=== PATIENT | male | born 1995 | race Caucasian/White ===

== ENCOUNTER 2018-08-03 10:44 | Emergency (ER) | payer OTHER ==
[~2018-08-03] VITALS: Ht 167.6 cm; Wt 60.2 kg
[~2018-08-03 10:44] MED LIST: ABILIFY10 MG PO; CLONIDINE HCL0.1 MG PO; DEXTROAMP-AMPHE10 MG PO; INTUNIV1 MG PO
--- OUTSIDE RECORDS SUMMARY | 2018-08-03 10:48 | XMS ---
PreManage Notification: GENEVA ENAMORADO Security Library Serials Assistant Events No recent Security Events currently on file CRITERIA MET - [facility] CARE PROVIDERS There are no care providers on record at this time. Juve has no Care Guidelines for this patient. Taj VISIT COUNT (12 MO.) 1 NIGEL Thornton TOTAL 1 NOTE: Visits indicate total known visits. ED/UCC VISIT TRACKING (12 MO.) 08/03/2018 10:45 NIGEL Art OR TYPE: Emergency COMPLAINT: - SOB INPATIENT VISIT TRACKING (12 MO.) No inpatient visits to display in this time frame [id number]
[2018-08-03] MEDS ORDERED: VYVANSE60 MG PO (10:53)
[2018-08-03] MEDS ORDERED: LATUDA60 MG PO (10:53)
== END 2018-08-03 10:56 | disposition home or self-care (01) ==
LOC: ED 10:44
DX: R06.02 Shortness of breath (principal); R05 Cough

== ENCOUNTER 2019-05-21 02:11 | Emergency (ER) | payer OTHER ==
[~2019-05-21] VITALS: Ht 170.2 cm; Wt 56.2 kg
[~2019-05-21 02:11] MED LIST changes: +LATUDA60 MG PO; +VYVANSE60 MG PO
--- OUTSIDE RECORDS SUMMARY | 2019-05-21 02:14 | XMS ---
PreManage Notification: GENEVA ENAMORADO Security Vp Software Support Events No recent Security Events currently on file CRITERIA MET - Group Notification - [facility] - Has Care Guidelines - PDMP CARE PROVIDERS There are no care providers on record at this time. Juve has no Care Guidelines for this patient. Care History Medical/Surgical 08/06/2018 [facility] CASE MANAGEMENT REFERRAL MADE- PATIENT HAS [facility] AND NO PCP. E.D. VISIT COUNT (12 MO.) [facility] 2 NOTE: Visits indicate total known visits. ED/UCC VISIT TRACKING (12 MO.) 05/21/2019 02:11 NIGEL Art OR TYPE: Emergency COMPLAINT: - MEDICAL CLEARANCE 08/03/2018 10:45 NIGEL Art OR TYPE: Emergency COMPLAINT: - SOB DIAGNOSES: - Shortness of breath - Cough INPATIENT VISIT TRACKING (12 MO.) No inpatient visits to display in this time frame [id number]
[2019-05-21] MEDS ORDERED: VITAMIN D50000 UNI1 PO (02:45)
[2019-05-21] MEDS ORDERED: VRAYLAR3 MG PO (02:45)
[2019-05-21] MEDS ORDERED: CHLORPROMAZINE100 MG PO (02:47)
[2019-05-21] MEDS ORDERED: TRAZODONE HCL50 MG PO (02:48)
[2019-05-21] MEDS ORDERED: VYVANSE50 M1 PO (02:48)
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
--- NOTE | 2019-05-21 08:10 | NUR ---
CHW CALLED [facility] 3 X VOICEMAIL IS NOT SET UP TO LEAVE A MESSAGE.
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
--- NOTE | 2019-05-21 08:18 | NUR ---
CHW CONTACTED FAUSTO BRAVO INTERNATIONAL MANAGER- STATED PHONE CONVERSATIONS WITH [facility] AND [facility]. FAUSTO WANTS THEM TO KNOW THAT THEY WILL DISCHARGE PATIENT WITHIN THE NEXT 2 HOURS AND TO BE CONSISTENT WE ARE NOT GOING TO KEEP HIM IN THE ED. PATIENT HAS BEEN MEDICALLY CLEARED AND MENTAL HEALTH HAS CLEARED PATIENT.
--- NOTE | 2019-05-21 08:31 | NUR ---
CHW SPOKE WITH MUNA REYES AT [facility]- SHE WILL HAVE SOMEONE UP AT THE HOSPITAL TO VISIT WITH THE PATIENT WITHIN AN HOUR TO HELP PATIENT WITH PLACEMENT OPTIONS. SHE REITERATED THIS IS A ONE TIME CIRCUMSTANCE AND THAT THEY GENERALLY DO NOT DO THIS. BUT DUE TO CURRENT SITUATION THEY WILL HELP. CHW CONTACTED FAUSTO BRAVO TRADE SALES ASSISTANT- STATED [facility] WILL BE COMING TO VISIT THE PATIENT WITHIN THE HOUR. REITERATED WHAT MUNA STATED THIS IS A ONE TIME DEAL DUE TO CURRENT CIRCUMSTANCE BUT THEY DO NOT GENERALLY DO THIS.
== END 2019-05-21 09:14 | disposition home or self-care (01) ==
LOC: ED 02:11
DX: R45.4 Irritability and anger (principal); Z79.899 Other long term (current) drug therapy
CPT/HCPCS: 36415; 80053; 80176; 81001; 84443; 85025; 99284; G0480

== ENCOUNTER 2019-11-26 16:37 | Emergency (ER) | payer OTHER ==
[~2019-11-26] VITALS: Ht 170.2 cm; Wt 68.3 kg
[~2019-11-26 16:37] MED LIST changes: +CHLORPROMAZINE100 MG PO; +TRAZODONE HCL50 MG PO; +VITAMIN D50000 UNI1 PO; +VRAYLAR3 MG PO; +VYVANSE50 M1 PO
--- OUTSIDE RECORDS SUMMARY | 2019-11-26 16:40 | XMS ---
PreManage Notification: GENEVA ENAMORADO Security Model Maker Scale Events No recent Security Events currently on file CRITERIA MET - Group Notification - [facility] - Has Care Guidelines - PDMP CARE PROVIDERS There are no care providers on record at this time. Guidelines Source: [facility] [place] Guidelines Date: 05/24/2019 Care Coordination: Receiving mental health services with [facility].\T\nbsp; Please contact [facility] for mental health concerns.\T\nbsp; [place] office: \T\nbsp; [place] office: [phone]. Care History Medical/Surgical 08/06/2018 [facility] EOIPA CASE MANAGEMENT REFERRAL MADE- PATIENT HAS [facility] AND NO PCP. E.D. VISIT COUNT (12 MO.) 2 [facility] TOTAL 2 NOTE: Visits indicate total known visits. ED/UCC VISIT TRACKING (12 MO.) 11/26/2019 16:38 NIGEL Art OR TYPE: Emergency COMPLAINT: - HEAD LACERATION 05/21/2019 02:11 NIGEL Art OR TYPE: Emergency COMPLAINT: - MEDICAL CLEARANCE DIAGNOSES: - Irritability and anger - [facility] INPATIENT VISIT TRACKING (12 MO.) No inpatient visits to display in this time frame [id number]
== END 2019-11-26 17:00 | disposition home or self-care (01) ==
LOC: ED 16:37
DX: S01.01XA Laceration without foreign body of scalp, initial encounter (principal); F17.200 Nicotine dependence, unspecified, uncomplicated; W22.8XXA Striking against or struck by other objects, initial encounter
CPT/HCPCS: 99282

== ENCOUNTER 2019-12-15 16:11 | Emergency (ER) | payer OTHER ==
[~2019-12-15] VITALS: Ht 170.2 cm; Wt 62.0 kg
--- OUTSIDE RECORDS SUMMARY | 2019-12-15 16:14 | XMS ---
PreManage Notification: GENEVA ENAMORADO Security Customer Experience Analyst Events No recent Security Events currently on file CRITERIA MET - [facility] - Has Care Guidelines - PDMP - [facility] - 2 Visits in 30 Days CARE PROVIDERS SANJUANITA SAMSON Physician Entry Level Mechanical Engineer 11/27/2019-Current PHONE: Unknown Guidelines Source: [facility] - [place] Guidelines Date: 05/24/2019 Care Coordination: Receiving mental health services with [facility].\T\nbsp; Please contact [facility] for mental health concerns.\T\nbsp; [place] office: \T\nbsp; [place] office: [phone]. Care History Medical/Surgical 08/06/2018 [facility] EOIPA CASE MANAGEMENT REFERRAL MADE- PATIENT HAS [facility] AND NO PCP. E.D. VISIT COUNT (12 MO.) 3 [facility]. TOTAL 3 NOTE: Visits indicate total known visits. ED/C VISIT TRACKING (12 MO.) 12/15/2019 16:12 NIGEL Art OR TYPE: Emergency COMPLAINT: - SKIN PROBLEM 11/26/2019 16:38 NIGEL Art OR TYPE: Emergency COMPLAINT: - HEAD LACERATION DIAGNOSES: - Nicotine dependence, unspecified, uncomplicated - Striking against or struck by other objects, initial encounte - Laceration without foreign body of scalp, initial encounter 05/21/2019 02:11 NIGEL Art OR TYPE: Emergency COMPLAINT: - MEDICAL CLEARANCE DIAGNOSES: - Irritability and anger - Other [facility] (current) drug therapy INPATIENT VISIT TRACKING (12 MO.) No inpatient visits to display in this time frame [id number]
[2019-12-15] MEDS ORDERED: DOXYCYCLINE HY100 MG PO (19:25)
== END 2019-12-15 19:40 | disposition home or self-care (01) ==
LOC: ED 16:11
DX: L03.313 Cellulitis of chest wall (principal); F17.200 Nicotine dependence, unspecified, uncomplicated; F43.10 Post-traumatic stress disorder, unspecified; Z79.899 Other long term (current) drug therapy
CPT/HCPCS: 99282

== ENCOUNTER 2020-01-08 11:23 | Emergency (ER) | payer OTHER ==
[~2020-01-08] VITALS: Ht 170.2 cm; Wt 59.4 kg
[~2020-01-08 11:23] MED LIST changes: +DOXYCYCLINE HY100 MG PO
[2020-01-08] MEDS ORDERED: VENTOLIN HFA18 GM INH (11:40)
--- OUTSIDE RECORDS SUMMARY | 2020-01-08 12:08 | XMS ---
PreManage Notification: GENEVA ENAMORADO Security Kiln Fireman Events No recent Security Events currently on file CRITERIA MET - [facility] - Has Care Guidelines - PDMP - [facility] - 2 Visits in 30 Days CARE PROVIDERS SANJUANITA SAMSON Physician Machinist Job Setter 11/27/2019-Current PHONE: Unknown Guidelines Source: [facility] - [place] Guidelines Date: 05/24/2019 Care Coordination: Receiving mental health services with [facility].\T\nbsp; Please contact [facility] for mental health concerns.\T\nbsp; [place] office: \T\nbsp; [place] office: [phone]. Care History Medical/Surgical 08/06/2018 [facility] EOIPA CASE MANAGEMENT REFERRAL MADE- PATIENT HAS [facility] AND NO PCP. E.D. VISIT COUNT (12 MO.) 4 [facility] T[facility] NOTE: Visits indicate total known visits. ED/UCC VISIT TRACKING (12 MO.) 01/08/2020 11:23 NIGEL Art OR TYPE: Emergency COMPLAINT: - SKIN PROBLEM 12/15/2019 16:12 NIGEL Atr OR TYPE: Emergency COMPLAINT: - SKIN PROBLEM DIAGNOSES: - Other termite control representative (current) drug therapy - Post-traumatic stress disorder, unspecified - Disorder of the skin and subcutaneous tissue, unspecified - Nicotine dependence, unspecified, uncomplicated - Cellulitis of chest wall 11/26/2019 16:38 NIGEL Art OR TYPE: Emergency COMPLAINT: - HEAD LACERATION DIAGNOSES: - Nicotine dependence, unspecified, uncomplicated - Striking against or struck by other objects, initial encounte - Laceration without foreign body of scalp, initial encounter 05/21/2019 02:11 NIGEL Art OR TYPE: Emergency COMPLAINT: - MEDICAL CLEARANCE DIAGNOSES: - Irritability and anger - Other care home (current) drug therapy INPATIENT VISIT TRACKING (12 MO.) No inpatient visits to display in this time frame [id number]
== END 2020-01-08 11:32 | disposition home or self-care (01) ==
LOC: ED 11:23
DX: L08.9 Local infection of the skin and subcutaneous tissue, unspecified (principal)

== ENCOUNTER 2020-06-23 23:17 | Emergency (ER) | payer OTHER ==
[~2020-06-23] VITALS: Ht 170.2 cm; Wt 69.0 kg
[~2020-06-23 23:17] MED LIST changes: +VENTOLIN HFA18 GM INH
--- OUTSIDE RECORDS SUMMARY | 2020-06-23 23:20 | XMS ---
PreManage Notification: GENEVA ENAMORADO Security Shale Miner Events No recent Security Events currently on file CRITERIA MET - [facility] Guidelines CARE PROVIDERS SANJUANITA SAMSON Physician Cell Lead 11/27/2019-Current PHONE: Unknown Guidelines Source: [facility] [place] Guidelines Date: 05/24/2019 Care Coordination: Receiving mental health services with [facility].\T\nbsp; Please contact [employer] [facility] for mental health concerns.\T\nbsp; [place] office: \T\nbsp; [place] office: [phone]. E.D. VISIT COUNT (12 MO.) 4 NIGEL Thornton TOTAL 4 NOTE: Visits indicate total known visits. ED/UCC VISIT TRACKING (12 MO.) 06/23/2020 23:18 NIGEL Art OR TYPE: Emergency COMPLAINT: - LT ANKLE PAIN 01/08/2020 11:23 NIGEL Art OR TYPE: Emergency COMPLAINT: - SKIN PROBLEM DIAGNOSES: - Local infection of the skin and subcutaneous tissue, unspecified 12/15/2019 16:12 NIGEL Art OR TYPE: Emergency COMPLAINT: - SKIN PROBLEM DIAGNOSES: - Other custodial (current) drug therapy - Post-traumatic stress disorder, unspecified - Disorder of the skin and subcutaneous tissue, unspecified - Nicotine dependence, unspecified, uncomplicated - Cellulitis of chest wall 11/26/2019 16:38 NIGEL Art OR TYPE: Emergency COMPLAINT: - HEAD LACERATION DIAGNOSES: - Nicotine dependence, unspecified, uncomplicated - Striking against or struck by other objects, initial encounter - Laceration without foreign body of scalp, initial encounter INPATIENT VISIT TRACKING (12 MO.) No inpatient visits to display in this time frame [id number]
[2020-06-23] MEDS ORDERED: VRAYLAR1.5 MG PO (23:39)
== END 2020-06-24 00:18 | disposition home or self-care (01) ==
LOC: ED 23:17
DX: S93.402A Sprain of unspecified ligament of left ankle, initial encounter (principal); F17.200 Nicotine dependence, unspecified, uncomplicated; Z79.899 Other long term (current) drug therapy; V04.9 Pedestrian injured in collision with heavy transport vehicle or bus, unspecified whether traffic or nontraffic accident
CPT/HCPCS: 73610; 99283-25